=== PATIENT | male | born 1980 | race Caucasian/White ===

== ENCOUNTER 2019-03-09 18:39 | Emergency (ER) | payer OTHER ==
--- NOTE | 2019-03-09 18:54 | PDOC ---
Rapid Medical Evaluation Time Seen by Provider: 03/09/19 18:53 Medical Evaluation: Allergies Allergy/AdvReac Type Severity Reaction Status Date / Time cephalexin monohydrate Allergy Unknown Verified 10/29/15 23:12 [From Keflex] 03/09/19 18:53 CC: low back pain PE: no focal findings Orders: nothing Patient will proceed to ED for further evaluation. Discharge Disposition - Diagnosis Back pain - Referrals - Patient Instructions - Post Discharge Activity
[2019-03-09 18:58] VITALS: BP 129/90; PULSE 75; TEMP 98.2; BMI 34.2
[2019-03-09] MEDS ORDERED: IBUPROFEN 600 MG TABLET (FP) PO ONE ×2 (20:14→20:23)
--- NOTE | 2019-03-09 20:21 | PDOC ---
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 He is ambulatory, has no numbness. And did not take anything for pain. Patient has no incontinence or saddle anesthesia GENERAL/CONSTITUTIONAL: No fever, weakness. dizziness HEAD, EYES, EARS, NOSE AND THROAT: No change in vision. No ear pain or discharge. No sore throat. CARDIOVASCULAR: No chest pain RESPIRATORY: No shortness of breath or cough GASTROINTESTINAL: No pain, nausea, vomiting, diarrhea or constipation GENITOURINARY: No dysuria MUSCULOSKELETAL: No neck,+back pain SKIN: No rash NEUROLOGIC: No headache, vertigo, loss of consciousness, or loss of sensation. GENERAL: The patient is awake, alert, and fully oriented, in no acute distress. HEAD: Normal with no signs of trauma. EYES: Pupils equal, round and reactive to light, sclera anicteric, conjunctiva clear. ENT: pharynx: no erythema, no exudate, uvula midline NECK: supple CHEST: clear, nontender, rr ABD: soft, nontender BACK: Minimal bilateral SI tenderness, no signs of injury EXTREMITIES: Normal range of motion, no edema. NEUROLOGICAL: Normal speech, normal gait. Cranial nerves II through XII grossly intact, no gross focal abnormalities SKIN: Warm, Dry Past History - Past Medical History Allergies/Adverse Reactions: Allergies Allergy/AdvReac Type Severity Reaction Status Date / Time cephalexin monohydrate Allergy Unknown Verified 03/09/19 18:54 [From Keflex] Home Medications: Ambulatory Orders Ciprofloxacin [Cipro (Restricted To Id)] 500 mg PO Q12H #20 tablet 10/30/15 Ibuprofen [Motrin -] 600 mg PO TID PRN #12 tablet 10/30/15 COPD: No Thyroid Disease: No - Immunization History Td Vaccination: No TDAP Vaccination: No Immunization Up to Date: Yes - Psycho Social/Smoking Cessation Hx Smoking Status: No Smoking History: Never smoked Have you smoked in the past 12 months: No Number of Cigarettes Smoked Daily: 0 Information on smoking cessation initiated: No Hx Alcohol Use: No Drug/Substance Use Hx: No *Physical Exam - Vital Signs Last Vital Signs Temp Pulse Resp BP Pulse Ox 98.2 F 75 17 129/90 100 03/09/19 18:55 03/09/19 18:55 03/09/19 18:55 03/09/19 18:55 03/09/19 18:55 Medical Decision Making - Medical Decision Making 03/09/19 20:46 38-year-old male with chronic back issues, who had lower back injury related to past seat bouncing up and down. No numbness, saddle anesthesia or incontinence. Patient has no pain in his legs, he has isolated pain across his lower back, is moving well and appears in no discomfort. Patient is in pain management and has Flexeril and hydrocodone at home. Patient offered Motrin and given. No imaging is indicated. Patient has doctor to follow-up with. Discussed issues, findings, results, applicable medications and treatments and follow-up. All these were understood and all questions were answered Discharge - Discharge Information Problems reviewed: Yes Clinical Impression/Diagnosis: Back pain Qualifiers: Back pain location: low back pain Chronicity: unspecified Back pain laterality : left Sciatica presence: without sciatica Qualified Code(s): M54.5 - Low back pain Condition: Stable Disposition: HOME - Admission No - Additional Discharge Information Prescription Drug Monitoring Program (I-STOP) results: I-STOP not reviewed - Follow up/Referral Referrals: Reagan Feldman MD [Primary Care Provider] - - Patient Discharge Instructions Patient Printed Discharge Instructions: Low Back Pain Additional Instructions: No heavy lifting or bending Apply ice to the area 20 minutes every 2 hours for the next 2 days Continue taking Motrin 600 mg every 6 hours for pain. If still in pain you can take the meds you have at home from pain management Return to the nearest ER if numbness, weakness, severe pain, problems with urinating or having bowel movements. Follow-up with your pain management doctor - Post Discharge Activity Work/Back to School Note: Back to Work
== END 2019-03-09 20:29 | disposition home or self-care (01) ==
LOC: JERFT 18:39
DX: M54.5 Low back pain (principal); V78.0XXA Driver of bus injured in noncollision transport accident in nontraffic accident, initial encounter; Y92.414 Local residential or business street as the place of occurrence of the external cause; Y99.0 Civilian activity done for income or pay; Y93.89 Activity, other specified
CPT/HCPCS: 99281-25